=== PATIENT | male | born 1995 | race Caucasian/White ===

== ENCOUNTER 2023-12-01 10:24 | Emergency (ER) | payer BC, SELFPAY ==
[2023-12-01] VITALS (16 sets, daily range): BP systolic 136–152; BP diastolic 82–108; PULSE 76–107; RESP 18; TEMP 37.1; O2SAT 97–100
--- NOTE | 2023-12-01 10:30 | RT.EKG_ITS ---
APPROVED REPORT Exam: Resting ECG Reason for Exam: chest pain Patient Location: E HR:87 bpm ECG Measurements Heart Rate 87 AXIS WI 150 P 8 QRSd 103 QRS -1 QT 350 T 0 QTc 422 Conclusion Sinus rhythm...normal P axis, V-rate 60- 99
--- NOTE | 2023-12-01 11:01 | ED.GENADUL_ITS ---
Discharge Plan Disposition Patient Disposition: Home Condition: Stable Discharge Details Clinical Impression: Headache Primary Care Provider: Unknown,Unknown ED Provider: Donna Jurado Home Meds and New Rx's Prescriptions: Continued lorazepam 2 mg tablet 2 mg PO Q4H PRN meloxicam 7.5 mg tablet 7.5 mg PO BID ondansetron 4 mg tablet,disintegrating 4 mg PO Q8H PRN penicillin V potassium 500 mg tablet 500 mg PO QID Patient Comments: Has not started yet promethazine 25 mg tablet 25 mg PO Q6H PRN Patient Comments: TAKE 1 TABLET BY MOUTH EVERY 6 HOURS NEEDED FOR NAUSEA nortriptyline 75 mg capsule 75 mg PO DAILY Patient Comments: TAKE ONE CAPSULE BY MOUTH EVERY NIGHT AT BEDTIME WITH 25 MG CAPSULE FOR TOTAL OF 100 MG/DAY propranolol 10 mg tablet 10 mg PO Q8H Patient Comments: TAKE 1 TABLET BY MOUTH UP TO FOUR TIMES DAILY NEEDED metoclopramide HCl 10 mg tablet 10 mg PO Q6H Patient Comments: TAKE 1 TABLET BY MOUTH THREE TIMES DAILY NEEDED FOR NAUSEA Discharge Instructions Instructions: General Headache (ED) Additional Instructions: Follow up with primary care provider in 3-5 days. Return to ED sooner if any worsening pain, dizziness, confusion, vomiting, weakness or concerns. No evidence of abnormality on your head CT or lab work. Please take Tylenol or Ibuprofen with food every 4-6 hours as needed for pain and swelling. Increase oral fluids to approximately 8 glasses of water daily. Stand Alone Forms: School Release [facility] General Mode of arrival: ambulatory . Date/Time Provider Initiated Documentation: 12/01/23 10:44 . Limitations to Documentation: no limitations . Information obtained by: patient, RN notes reviewed and old records reviewed . HPI Narrative: 28-year-old male presents to the ER with a chief complaint of headache generalized for the last 3 weeks. He reports that this morning he woke up with pain in his jaw and left arm. He also presents with some hypertension initially. He denies any nausea vomiting. He reports no sensitivity to light or sound he describes the pain as throbbing and pressure. Which is constant. He has been seen for this before was given meloxicam and Toradol which she reports helped for a couple of days and then headache returned. He denies any head injury, no focal neurodeficits noted. He does have a history depression and anxiety. He reports that he has had headaches in the past but nothing like this. Denies any radiation into his neck or back. Related Data Home Medications Medication Instructions Recorded Confirmed lorazepam 2 mg tablet 2 mg PO Q4H PRN 12/01/23 12/01/23 meloxicam 7.5 mg tablet 7.5 mg PO BID 12/01/23 12/01/23 metoclopramide HCl 10 mg tablet 10 mg PO Q6H 12/01/23 12/01/23 nortriptyline 75 mg capsule 75 mg PO DAILY 12/01/23 12/01/23 ondansetron 4 mg disintegrating 4 mg PO Q8H PRN 12/01/23 12/01/23 tablet penicillin V potassium 500 mg 500 mg PO QID 12/01/23 12/01/23 tablet promethazine 25 mg tablet 25 mg PO Q6H PRN 12/01/23 12/01/23 propranolol 10 mg tablet 10 mg PO Q8H 12/01/23 12/01/23 Allergies Allergy/AdvReac Type Severity Reaction Status Date / Time No Known Allergies Allergy Unverified 12/01/23 10:44 General Stated Complaint: Headache TREMAINE: 3 Review of Systems All systems reviewed & are unremarkable except as noted in HPI and below Constitutional Constitutional: Reports headache(s) ENT Ears, Nose, Mouth, and Throat: Reports headache(s) Neurologic Neurologic: Reports headache(s) Exam Narrative Exam Narrative: Constitutional: Alert and oriented x3. Appears stated age. Normal body habitus. Head: Normocephalic, no trauma. Eyes: Pupils PERRL, Red reflex noted, EOM's intact. Eyelids symmetrical without lesions, discharge, or swelling. ENT: Bilateral TM's WNL, External ear normal to inspection, no mastoid TTP, swelling, or erythema, Nasal turbinates WNL, no nasal discharge. Normal dentition, Posterior pharynx WNL, no exudate. Chest: RRR, Normal S1, S2, distal pulses intact. Resp: Lungs clear to auscultation bilaterally, no wheezes, rales, or rhonchi. Abdomen: Soft, non-distended, Normoactive bowel sounds all 4 quads. Musculoskeletal: Skin: No suspicious rashes or lesions. Capillary refill less than 2 sec. Neurologic: Cranial nerves II-XII intact. Alert and oriented x 3. Motor: No deficits noted. Sensory: Intact bilaterally all 4 extremities. Hematologic/Lymphatic: No ecchymosis, no lymphadenopathy. Course Vital Signs Vital signs: Vital Signs Temperature 37.1 C 12/01/23 10:36 Pulse 97 H 12/01/23 10:36 Respiratory Rate 18 12/01/23 10:36 Blood Pressure 152/101 H 12/01/23 10:36 Pulse Oximetry 99 12/01/23 10:36 Temperature 37.1 C 12/01/23 10:44 Temperature Source Skin 12/01/23 10:44 Pulse 97 H 12/01/23 10:44 Respiratory Rate 18 12/01/23 10:44 Respiratory Effort Short of Breath 12/01/23 10:42 Blood Pressure 152/101 H 12/01/23 10:44 Blood Pressure Position Sitting 12/01/23 10:44 Pulse Oximetry 99 12/01/23 10:44 Oxygen Delivery Method Room Air 12/01/23 10:44 Oxygen Flow Rate 0 12/01/23 10:44 Pain Level 10 12/01/23 10:44 Medical Decision Making 28-year-old male presents to the ER with a chief complaint of headache generalized for the last 3 weeks. He reports that this morning he woke up with pain in his jaw and left arm. He also presents with some hypertension initially. He denies any nausea vomiting. He reports no sensitivity to light or sound he describes the pain as throbbing and pressure. Which is constant. He has been seen for this before was given meloxicam and Toradol which she reports helped for a couple of days and then headache returned. He denies any head injury, no focal neurodeficits noted. He does have a history depression and anxiety. He reports that he has had headaches in the past but nothing like this. Denies any radiation into his neck or back. Patient appears non-toxic, alert and oriented. EKG was reviewed by Dr. Alarcon ER attending, normal sinus rhythm, no old EKG available for review. Workup ordered including serial troponins, CBC CMP urinalysis. Will order head CT fluids and a headache cocktail. 1246: Re-evaluation, patient still c/o headache, 1gm Tylenol ordered. Patient feeling better after Tylenol, pain down to a 5/10. Ambulatory upon discharge, instructed to follow up with PCP, given strict return instructions. This text was generated using Nuance dictation system, please disregard any oddities of phrase or misspellings. Imaging Data Radiologic Study: Imaging: CT Scan Radiologist's impression: CLINICAL HISTORY: Headache. TECHNIQUE: Imaging Protocol: Axial computed tomography images with coronal and sagittal reformatted images were created and reviewed COMPARISON: No exams were available for comparison FINDINGS: Ventricles and Extra axial spaces: Normal in size and morphology for the patient's age. Hemorrhage: None. Cerebral parenchyma: Normal. Midline shift: None. Brainstem/Cerebellum: Normal. Calvarium: Normal. Visualized Paranasal sinuses/Mastoids: Clear. Soft Tissues: Unremarkable. IMPRESSION: 1. No acute intracranial process. 2. Findings were discussed with the emergency department at 12:35 p.m. on 12/01/2023. Quality:SDOH Health Related Social Needs: No Data to Display PFSH All Active Problems (Updated 12/01/23 @ 13:18 by Donna Jurado NP) Headache (Acute) Social History Smoking/Tobacco Use Status: Never Smoking risk assessment performed?: Yes Alcohol Intake: never Drug use: Never Substance use type: does not use Housing: house Do you feel safe at home: Yes Do you feel safe in your relationship?: Yes
[2023-12-01 11:12] LABS: Abs Immature Grans 0.02 10^3/uL (0.0-0.06); Absolute Basophil Count 0.06 10^3/uL (0.0-0.2); Absolute Eosinophil Count 0.69 10^3/uL (0.0-0.7); Absolute Lymphocyte Count 2.27 10^3/uL (1.2-3.4); Absolute Monocyte Count 0.71 10^3/uL (0.1-0.8); Absolute Neutrophil Count 4.11 10^3/uL (1.2-6.7); Basophils % 0.8; Eosinophils % 8.8; HCT 43.2 % (40.0-50.0); HGB 14.2 g/dL (13.5-17.5); Immature Grans % 0.3; Lymphocytes % 28.9; MCH 27.8 pg (27.0-33.0); MCHC 32.9 % (32.0-36.0); MCV 85 fL (80-95); MPV 8.8 fL (8.0-11.0); Neutrophils % 52.2; Platelet Count 333 10^3/uL (130-400); RBC 5.11 10^6/uL (4.36-5.78); RDW 12.7 % (11.8-14.1); RDW-SD 39.2 fL; WBC 7.86 10^3/uL (4.4-10.8)
[2023-12-01] MEDS: Ketorolac 30 MG/ML VIAL IVP (11:18)
[2023-12-01] MEDS: Normal Saline 1,000 ML 1000 ML IV (11:18)
[2023-12-01 11:31] LABS: ALT 73 U/L (16-63); AST 19 U/L (15-37); Albumin 4.2 g/dL (3.4-5.0); Alkaline Phosphatase 104 U/L (46-116); Anion Gap 10.3 mmol/L (3-11); BUN 17 mg/dL (7-18); Bilirubin, Total 0.7 mg/dL (0.2-1.0); CO2 26.7 mmol/L (21.0-32.0); CREATININE 0.9 mg/dL (0.70-1.30); Calcium 9.3 mg/dL (8.5-10.1); Chloride 103 mmol/L (98-107); Estimated GFR 118.57 (mL/min/1.73m2); Glucose 99 mg/dL (74-106); Magnesium 2.1 mg/dL (1.8-2.4); Potassium 3.9 mmol/L (3.5-5.1); Sodium 140 mmol/L (136-145); Total Protein 7.6 g/dL (6.4-8.2); Troponin I < 50 ng/L (< or =60)
[2023-12-01] MEDS: Prochlorperazine 10 MG/2 ML VIAL 5 MG IVP (11:51)
[2023-12-01] MEDS: diphenhydrAMINE 50 MG/ML VIAL 25 MG IVP (11:52)
--- NOTE | 2023-12-01 12:30 | DI.CT_ITS ---
Exam(s) CT HEAD WO EXAM: CT HEAD WO CLINICAL HISTORY: Headache. TECHNIQUE: Imaging Protocol: Axial computed tomography images with coronal and sagittal reformatted images were created and reviewed COMPARISON: No exams were available for comparison FINDINGS: Ventricles and Extra axial spaces: Normal in size and morphology for the patient's age. Hemorrhage: None. Cerebral parenchyma: Normal. Midline shift: None. Brainstem/Cerebellum: Normal. Calvarium: Normal. Visualized Paranasal sinuses/Mastoids: Clear. Soft Tissues: Unremarkable. IMPRESSION: 1. No acute intracranial process. 2. Findings were discussed with the emergency department at 12:35 p.m. on 12/01/2023. RADIATION DOSE DELIVERED: Total DLP DATA REPOSITORY: All CT scans at this facility are submitted to the National Radiology Data Registry (NRDR) Dose Index Registry (DIR) with the [employer] ([employer]). RADIATION OPTIMIZATION: All CT scans at this facility use at least one of these dose optimization te chniques: automated exposure control; mA and/or kV adjustment per patient size (includes targeted exa ms where dose is matched to clinical indication); or iterative reconstruction.
[2023-12-01] MEDS: ACETAMINOPHEN 1,000 MG/100 ML BTL 400 MG IVPB (13:01)
== END 2023-12-01 13:37 | disposition home or self-care (01) ==
PROVIDERS: Emergency Provider Registered Nurse Emergency
DX: R51.9 Headache, unspecified (principal); R07.9 Chest pain, unspecified
CPT/HCPCS: 36415; 80053; 93005; 96361; 96374; 96375; 99285; 70450; 83735; 84484; 85025; 93010; 99284; J0131; J0780; J1200; J1885

== ENCOUNTER 2023-12-08 23:29 | Emergency (ER) | payer BC, SELFPAY ==
--- NOTE | 2023-12-08 23:30 | RT.EKG_ITS ---
APPROVED REPORT Exam: Resting ECG Reason for Exam: rapid heart rate Patient Location: E HR:110 bpm ECG Measurements Heart Rate 110 AXIS AL 150 P 64 QRSd 100 QRS 49 QT 309 T 31 QTc 419 Conclusion Sinus tachycardia...rate> 99 sinus tachycardua, normal axis, normal intervals, non ischemic
[2023-12-08 23:32] VITALS: BP 135/90; PULSE 115; RESP 18; TEMP 37.1; O2SAT 97
[2023-12-08 23:35] VITALS: RESP 18
--- NOTE | 2023-12-08 23:51 | ED.GENADUL_ITS ---
Discharge Plan Disposition Patient Disposition: Home Condition: Improving Discharge Details Chief Complaint: GenMedical Clinical Impression: Tachycardia ED Provider: Ziyad Cody Home Meds and New Rx's Prescriptions: No Action lorazepam 2 mg tablet 2 mg PO Q4H PRN meloxicam 7.5 mg tablet 7.5 mg PO BID ondansetron 4 mg tablet,disintegrating 4 mg PO Q8H PRN promethazine 25 mg tablet 25 mg PO Q6H PRN Patient Comments: TAKE 1 TABLET BY MOUTH EVERY 6 HOURS NEEDED FOR NAUSEA nortriptyline 75 mg capsule 75 mg PO DAILY Patient Comments: TAKE ONE CAPSULE BY MOUTH EVERY NIGHT AT BEDTIME WITH 25 MG CAPSULE FOR TOTAL OF 100 MG/DAY propranolol 10 mg tablet 10 mg PO Q6H Patient Comments: TAKE 1 TABLET BY MOUTH UP TO FOUR TIMES DAILY NEEDED metoclopramide HCl 10 mg tablet 10 mg PO Q6H Patient Comments: TAKE 1 TABLET BY MOUTH THREE TIMES DAILY NEEDED FOR NAUSEA Discharge Instructions Instructions: Tachycardia (ED) Stand Alone Forms: Work Release HPI General Date/Time Provider Initiated Documentation: 12/08/23 23:50 . 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 Related Data Home Medications Medication Instructions Recorded Confirmed lorazepam 2 mg tablet 2 mg PO Q4H PRN 12/01/23 12/08/23 meloxicam 7.5 mg tablet 7.5 mg PO BID 12/01/23 12/08/23 metoclopramide HCl 10 mg tablet 10 mg PO Q6H 12/01/23 12/08/23 nortriptyline 75 mg capsule 75 mg PO DAILY 12/01/23 12/08/23 ondansetron 4 mg disintegrating 4 mg PO Q8H PRN 12/01/23 12/08/23 tablet promethazine 25 mg tablet 25 mg PO Q6H PRN 12/01/23 12/08/23 propranolol 10 mg tablet 10 mg PO Q6H 12/01/23 12/08/23 Allergies Allergy/AdvReac Type Severity Reaction Status Date / Time No Known Allergies Allergy Unverified 12/08/23 23:37 General Stated Complaint: GenMedical TREMAINE: 3 Review of Systems Narrative: Review of Systems Constitutional: negative Eyes: negative ENT: negative Cardiovascular: Tachycardia Respiratory: negative Gastrointestinal: negative : negative Musculoskeletal: negative Skin: negative Neurologic: negative Psych: negative Exam Narrative Exam Narrative: Physical Examination General: alert, awake, cooperative, resting comfortably, no acute distress HEENT: normocephalic, atraumatic; PERRL, EOM intact, conjunctiva normal; no nasal discharge; moist mucous membranes, oral and pharyngeal mucosa normal, tolerating secretions Neck: supple, trachea midline; full ROM Chest: normal to inspection Respiratory: normal respiratory effort, speaking in full sentences Cardiac: Tachycardia, regular rhythm, S1S2 intact, no murmurs rubs or gallops GI: abdomen soft, non-tender, non-distended; no palpable mass or hepatosplenomegaly Skin: no lesions, rashes or trauma appreciated Neuro: AAOx3, normal speech, moving all extremities Extremities: No peripheral edema Psych: Mildly anxious Course Vital Signs Vital signs: Vital Signs Temperature 37.1 C 12/08/23 23:32 Pulse 115 H 12/08/23 23:32 Respiratory Rate 18 12/08/23 23:32 Blood Pressure 135/90 12/08/23 23:32 Pulse Oximetry 97 12/08/23 23:32 Temperature 37.1 C 12/08/23 23:32 Temperature Source Temporal Artery Scan 12/08/23 23:32 Pulse 115 H 12/08/23 23:32 Respiratory Rate 18 12/08/23 23:35 Respiratory Effort Normal 12/08/23 23:35 Blood Pressure 135/90 12/08/23 23:32 Pulse Oximetry 97 12/08/23 23:32 Oxygen Delivery Method Room Air 12/08/23 23:32 Oxygen Flow Rate 0 12/08/23 23:32 Pain Level 2 12/08/23 23:32 Medical Decision Making 28-year-old male history of recurrent tachycardia presents with tachycardia this evening Apple Watch told him his heart rate was as high as 150, patient is on daily propranolol and lorazepam, compliant with medications, recent increase in physical activity at work, has been trying to keep up with his oral hydration, afebrile nontoxic no acute distress he is mildly anxious, no shortness of breath no hypoxia no tachypnea. Heart rate improving upon arrival 105 on monitor. Patient did take his lorazepam and propranolol this evening. No chest pain no peripheral edema no history of thromboembolic disease or ACS. High clinical suspicion for anxiety versus dehydration muscles consider electrolyte derangement lower suspicion for ACS PE aortic pathology pneumonia pneumothorax or benzodiazepine withdrawal. Trial of fluids, screening electrolytes close reassessment EKG normal sinus rhythm nonischemic 00: 31 patient resting actively no acute distress. Heart rate 105. No chest pain or shortness of breath. No presyncope. Patient follow-up close with primary care physician. Home care instructions return precautions given Quality:SDOH Health Related Social Needs: No Data to Display [facility] All Active Problems (Updated 12/09/23 @ 00:32 by Ziyad Cody MD) Tachycardia (Acute) Headache (Acute) Social History Smoking/Tobacco Use Status: Current every day Tobacco Type: e-cigarettes Smoking risk assessment performed?: Yes Alcohol Intake: never Drug use: Never Substance use type: does not use Housing: house Do you feel safe at home: Yes Do you feel safe in your relationship?: Yes
[2023-12-08 23:58] LABS: Abs Immature Grans 0.03 10^3/uL (0.0-0.06); Absolute Basophil Count 0.07 10^3/uL (0.0-0.2); Absolute Eosinophil Count 0.72 10^3/uL (0.0-0.7); Absolute Lymphocyte Count 2.52 10^3/uL (1.2-3.4); Absolute Monocyte Count 1.08 10^3/uL (0.1-0.8); Absolute Neutrophil Count 4.51 10^3/uL (1.2-6.7); Basophils % 0.8; Eosinophils % 8.1; HGB 12.3 g/dL (13.5-17.5); Immature Grans % 0.3; Lymphocytes % 28.2; MCH 27.3 pg (27.0-33.0); MCHC 32.4 % (32.0-36.0); MCV 84 fL (80-95); Monocytes % 12.1; Neutrophils % 50.5; Platelet Count 356 10^3/uL (130-400); RBC 4.51 10^6/uL (4.36-5.78); RDW 12.8 % (11.8-14.1); WBC 8.93 10^3/uL (4.4-10.8)
[2023-12-09] MEDS: Normal Saline 1,000 ML 1000 ML IV (00:04)
[2023-12-09 00:13] LABS: ALT 48 U/L (16-63); AST 15 U/L (15-37); Albumin 3.6 g/dL (3.4-5.0); Alkaline Phosphatase 109 U/L (46-116); Anion Gap 9.7 mmol/L (3-11); BUN 18 mg/dL (7-18); Bilirubin, Total 0.4 mg/dL (0.2-1.0); CO2 25.3 mmol/L (21.0-32.0); CREATININE 1.1 mg/dL (0.70-1.30); Calcium 8.6 mg/dL (8.5-10.1); Chloride 107 mmol/L (98-107); Estimated GFR 93.19 (mL/min/1.73m2); Glucose 104 mg/dL (74-106); Potassium 3.9 mmol/L (3.5-5.1); Sodium 142 mmol/L (136-145); Total Protein 6.6 g/dL (6.4-8.2)
[2023-12-09 00:36] VITALS: BP 143/82; PULSE 100; RESP 17; TEMP 36.8; O2SAT 96
[2023-12-09 00:40] VITALS: BP 143/82; PULSE 98; RESP 17; TEMP 36.8; O2SAT 96
== END 2023-12-09 00:46 | disposition home or self-care (01) ==
LOC: ER 12-09 00:48
PROVIDERS: Emergency Provider Emergency Medicine
DX: R00.2 Palpitations (principal); R00.0 Tachycardia, unspecified; F17.290 Nicotine dependence, other tobacco product, uncomplicated
CPT/HCPCS: 80053; 93005; 96360; 99284; 85025; 93010; 99283

== ENCOUNTER 2023-12-22 16:19 | Emergency (ER) | payer BC, SELFPAY ==
[2023-12-22 16:26] VITALS: BP 143/83; PULSE 97; RESP 16; TEMP 37; O2SAT 100
== END 2023-12-22 16:45 ==
DX: Z53.21 Procedure and treatment not carried out due to patient leaving prior to being seen by health care provider (principal)